=== PATIENT | female | born 1985 | race Caucasian/White ===

== ENCOUNTER → 2018-01-01 16:25 | Observation (INO) ==
[2018-01-01 14:53] LABS: Basophils # 0.1 K/mcL (0.0-0.2); Basophils % 0.5 %; Eosinophils # 0.1 K/mcL (0.0-0.6); Hematocrit 38.2 % (35.3-44.9); Immature Granulocytes % 0.8 % (0-4); Lymphocytes # 1.5 K/mcL (0.6-4.6); Lymphocytes % 15.8 %; Mean Corpuscular Hemoglobin 31.6 pg (28.0-33.3); Mean Corpuscular Volume 92.7 fL (83.0-100.0); Mean Platelet Volume 11.8 fL (9.4-12.4); Monocytes # 0.7 K/mcL (0.0-1.3); Monocytes % 6.8 %; Neutrophils # 7.2 K/mcL (1.6-8.9); Platelet Count 166 K/mcL (140-400); Red Blood Count 4.12 M/mcL (3.82-4.97); Red Cell Distribution Width 14.6 % (11.5-14.5); Segmented Neutrophils % 75.1 %
[2018-01-01 15:17] LABS: Alanine Aminotransferase 15 Units/L (7-52); Aspartate Amino Transferase 18 Units/L (13-39); BUN/Creatinine Ratio 11 (6-26); Blood Urea Nitrogen 8 mg/dL (6-20); Lactate Dehydrogenase 148 Units/L (140-271); Uric Acid 5.6 mg/dL (2.3-7.6); eGFR For African Americans > 60 (> 60); eGFR For Non-African Americans > 60 (> 60)
[2018-01-01 15:25] LABS: Amphetamine Screen,Urine Negative ng/mL (Cutoff=1000); Barbiturate Screen,Urine Negative ng/mL (Cutoff=200); Benzodiazepines Screen,Urine Negative ng/mL (Cutoff=200); Cannabinoid Screen,Urine Negative ng/mL (Cutoff = 50); Cocaine Screen,Urine Negative ng/mL (Cutoff= 300); Creatinine,Urine 22 mg/dL; Opiate Screen,Urine Negative ng/mL (Cutoff=300); Phencyclidine Screen,Urine Negative ng/mL (Cutoff=25); Protein/Creatinine Ratio,Urine 0.23 mg/mg (0.00-0.20)
--- NOTE | 2018-01-01 15:40 | OB/GYN Progress Note ---
Date of Encounter: 01/01/18 Time of Encounter: 15:31 - Assessment and Plan (1) PIH ( induced hypertension), antepartum Current Visit: Yes Status: Acute Pt sent from the office for PIH evaluation secondary to elevated BP in office. Pressures in L&D have been 130s/80s, PIH labwork negative with urine protein/ creat ratio of 0.23. Pt is asymptomatic with + movement, no LOF or VB. Pt advised to rest and hydrate, provided labor precautions. Pt has f/u 01/[address] Vallecillo (2) 37 weeks gestation of Current Visit: Yes Status: Acute Subjective - Subjective Principal diagnosis: 37 weeks gestation Interval history: Ms. Smith is a 32 y/o female at 37 6/7 weeks gestation pt of Dr. Vallecillo who presents to labor and delivery from the office for PIH evaluation. She was noted today to have SBP 160s in the office. She states that her has been uncomplicated except for current breech position of the baby. She has had 3 prior vaginal deliveries. She denies any dizziness, visual changes, ANDERSON, cp, sob, abdominal pain, increased swelling, lof, or vb. She reports good movement and occasional contractions. Antepartum ROS: movement normal, contractions (occasional), no new complaints, no loss of fluid, no vaginal bleeding Objective - Vital Signs Vital Signs: Intake and Output 12/31/17 01/01/18 01/01/18 23:59 07:59 15:59 Other: Weight 86.4 kg Patient Weight 01/01/18 23:59 Weight 86.4 kg - Exam FHR: auscultation normal, category 1 FHR comments: 140 Auscultation: bilateral: normal Abdomen: Present: normal appearance, soft, gravid Uterus: Present: normal, firm Comments: breech presentation I examined this patient and my medical decision-making was reviewed with the Resident Physician. I agree with the documented findings, disposition and treatment plan as described except to the extent set forth below. ROBE Pedro - Labs Labs: Abnormal lab results RDW 14.6 % (11.5-14.5) H 01/01/18 14:30 Protein/Creatinin Ratio 0.23 mg/mg (0.00-0.20) H 01/01/18 14:30 - Allied health notes Allied health notes reviewed: nursing
== END | disposition home or self-care (01) ==
LOC: 1NENULAB
PROVIDERS: ADMIT Student in an Organized Health Care Education/Training Program; ATTEND Student in an Organized Health Care Education/Training Program

== ENCOUNTER 2018-01-09 16:44 | Inpatient (IN) ==
[2018-01-09] MEDS ORDERED: Oxytocin 20 units/ LR 1000 mL 20 UNIT/1,000 ML BAG IVC ONE (16:54)
[2018-01-09] MEDS ORDERED: Ringers Solution, Lactated 1,000 ML IVC ONE (16:54)
[2018-01-09] MEDS ORDERED: Famotidine 20 MG/2 ML VIAL IVP ONE (16:54)
[2018-01-09] MEDS ORDERED: Metoclopramide 10 MG/2 ML VIAL IVP ONE (16:54)
[2018-01-09] MEDS ORDERED: Ringers Solution, Lactated 1,000 ML IVC SCH (17:00)
[2018-01-09] MEDS ORDERED: Oxytocin 20 units/ LR 1000 mL 20 UNIT/1,000 ML BAG IVC SCH (17:00)
--- NOTE | 2018-01-09 18:08 | OB/GYN History & Physical ---
Date of Encounter: 01/09/18 Time of Encounter: 18:03 Assessment and Plan (1) 39 weeks gestation of Current visit: Yes Status: Acute Patient has received care with Dr. Vallecillo (2) Breech presentation Current visit: Yes Status: Acute The patient had a formal ultrasound in the hospital which confirmed breech presentation. She has an PEYTON of 8.6. She has given informed consent to proceed with a primary section. Anesthesia and staff have been notified Qualifiers: Fetus number: single or unspecified fetus Qualified Code(s): O32.1XX0 - Maternal care for breech presentation, not applicable or unspecified History of Present Illness HPI: Ms. Smith is a 32 year old female 013 who presents to labor and delivery from the office for breech presentation with cervical change at 39 weeks. The patient had wanted to have a version because she had had 3 vaginal deliveries previously. The hope this fetus has been in the breech presentation. Ultrasound done formally after patient transferred over from the office to labor and delivery showed a breech presentation with an PEYTON of 8.6. It was also noted in the original 20 week ultrasound that there is a bilobed placenta with a membrane between. I reviewed these findings with the patient and recommend that she have a primary . She is at risk for a failed version and a placental disruption with need for emergency . Patient verbalized understanding of her situation and plan of care. Informed consent obtained. Her blood type is O+, she is rubella immune and varicella immune. 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 She reports the fetus been active. She had contractions a few days ago but nothing recently. She has had no vaginal bleeding or loss of fluid. Her GBS is negative. She reports an active fetus. Past Med Surg Social Fam HX - Past Medical History Source: patient, old records reviewed Medical history: thyroid disease Psychiatric history: no psych history - Past Surgical History Surgical History: no surgical history, other - Social History Smoking Status: Never smoker Smokeless Tobacco Status: No Alcohol use: none Drug use: none - Family History Mother Living Status: Still Living Hx Family Cardiac Disorders: No (HLD) Hx Family Respiratory Disorders: No Hx Family Cancer: No Hx Family GI Disorders: No Hx Family Endocrine Disorder: Yes (hypothyroid) Hx Family Neuromuscular Disorders: No Hx Family Neurologic Disorders: No Hx Family HEENT Disorders: No Hx Family Autoimmune Disorders: No Obstetrical History - Pregnancies : 5 Term: 3 Ab's: 1 Livin Medications and Allergies Pnv No.122/Iron/Folic Acid [ Multi Tablet] 1 tab PO DAILY 01/01/18 [ History] Thyroid,Pork [[place] Thyroid] 15 mg PO DAILY 01/01/18 [History] 3 Allergy/AdvReac Type Severity Reaction Status Date / Time Penicillins Allergy Mild Rash Verified 01/01/18 14:39 Review of System OB All systems PM: reviewed and no additional remarkable complaints except as stated - Cardiovascular Cardiovascular: pedal edema - Endocrine Endocrine: as per HPI Exam - Constitutional Constitutional: well developed, well nourished, no acute distress, average body habitus - HEENT HEENT: Normocephaly, Mucus Membranes Moist - Neck Neck exam: supple - Lungs Respiratory exam: CTAB - Cardiovascular Cardiovascular exam: RRR - Breasts Breast: bilateral: normal - Abdomen Abdomen: Present: gravid, non tender - Extremities Extremities exam: pedal edema, warm Deep Tendon Reflex Grade: 3+ Normal But Brisk - Vulva Vulva: bilateral: normal - Vagina Vagina: Present: normal moisture - Cervix Dilation: 4 (per Dr Vallecillo) Results All other labs normal. - VTE Documentation of Mechanical Device: Intermittent pneumatic compression device
--- NOTE | 2018-01-09 18:51 | Anesthesia Evaluation PreOp ---
Date of Encounter: 01/09/18 Time of Encounter: 18:49 - Past History Planned Operation: c section Cardiac History: Denies any Significant Hx Pulmonary History: Denies Any Significant HX APPRAISER History: Denies Any Significant HX Other Medical History: Thyroid, GERD Anesthesia History: No Prior Anesthetic Complications, Past Anesthesia (kurt x 2) : Yes Test: Positive Alcohol Use: none Drug use: none Medications and Allergies Pnv No.122/Iron/Folic Acid [ Multi Tablet] 1 tab PO DAILY 01/01/18 [ History] Thyroid,Pork [[place] Thyroid] 15 mg PO DAILY 01/01/18 [History] 3 Allergy/AdvReac Type Severity Reaction Status Date / Time Penicillins Allergy Mild Rash Verified 01/01/18 14:39 - Meds/Allergy Pre-op Review Medications Reviewed: Yes Allergies Reviewed: Yes Beta Blockers on Current Med List: No Anesthesia Exam 140/78 88 16 fht 133 Height: 5'4" Weight: 191 NPO (# of Hours): 8 Pain Scale: 2 Pain Scale Used: Numeric (1 - 10) - HEENT Pupil (Motor): Pupils equal Mallampati: II Teeth: Normal Oral Opening: Greater than 3 - APPRAISER LOC: Oriented APPRAISER Motor: Normal RUE, Normal LUE, Normal RLE, Normal LLE, Normal Face APPRAISER Sensory: Normal: RUE, LUE, RLE, LLE, Face - Cardiac Murmur: None - Pulmonary Breath Sounds: bilateral Clear Respiratory Effort: Symmetrical Anesthesia Assess/Plan ASA Score: 2 Modified Zohaib Scale for Level of Consciousness: Cooperative, oriented, and tranquil Anesthetic Plan: Regional Autologous Blood: No Monitoring Plan: Standard Monitors Recovery Plan: PACU (risks discussed, questions answered, consented)
[2018-01-09] MEDS ORDERED: *HR* FentaNYL (PF) 100 MCG/2 ML VIAL ONE (19:05)
[2018-01-09] MEDS ORDERED: *HR* Phenylephrine 10 MG/ML VIAL ONE (19:10)
[2018-01-09 19:14] LABS: Basophils % 0.2 %; Eosinophils % 0.3 %; Hematocrit 35.6 % (35.3-44.9); Hemoglobin 12.3 g/dL (11.5-15.4); Immature Granulocytes % 0.6 % (0-4); Lymphocytes # 1.2 K/mcL (0.6-4.6); Lymphocytes % 12.8 %; Mean Corpuscular HGB Conc 34.6 g/dL (31.6-35.5); Mean Corpuscular Hemoglobin 31.7 pg (28.0-33.3); Mean Corpuscular Volume 91.8 fL (83.0-100.0); Mean Platelet Volume 12.2 fL (9.4-12.4); Monocytes # 0.6 K/mcL (0.0-1.3); Neutrophils # 7.6 K/mcL (1.6-8.9); Platelet Count 173 K/mcL (140-400); Red Blood Count 3.88 M/mcL (3.82-4.97); Red Cell Distribution Width 14.6 % (11.5-14.5); Segmented Neutrophils % 80.1 %
[2018-01-09 19:28] LABS: Alanine Aminotransferase 14 Units/L (7-52); Aspartate Amino Transferase 18 Units/L (13-39); BUN/Creatinine Ratio 14 (6-26); Blood Urea Nitrogen 10 mg/dL (6-20); Lactate Dehydrogenase 128 Units/L (140-271); Uric Acid 6.7 mg/dL (2.3-7.6); eGFR For African Americans > 60 (> 60); eGFR For Non-African Americans > 60 (> 60)
[2018-01-09 20:41] LABS: Amphetamine Screen,Urine Negative ng/mL (Cutoff=1000); Barbiturate Screen,Urine Negative ng/mL (Cutoff=200); Benzodiazepines Screen,Urine Negative ng/mL (Cutoff=200); Cannabinoid Screen,Urine Negative ng/mL (Cutoff = 50); Cocaine Screen,Urine Negative ng/mL (Cutoff= 300); Opiate Screen,Urine Negative ng/mL (Cutoff=300); Phencyclidine Screen,Urine Negative ng/mL (Cutoff=25)
--- NOTE | 2018-01-09 21:40 | Anesthesia Procedures ---
Date of Encounter: 01/09/18 Time of Encounter: 21:38 Procedures: Anesthesia - Epidural/Spinal OB Eval: Gestational age: 38 OB Eval: : 5 OB Eval: Hx Para: 3 OB Eval: Dilated at (cm): 2 OB Eval: Contractions: Non-stressed pattern Consent Obtained: Yes Supplemental Oxygen: None/Room Air Site Prep: Aseptic Technique, Sterile prep and drape, Povidone-Iodine 1% Patient position: upright Local Anesthetic: Lidocaine 1% Amount of Local Anesthetic used: 3 Interspace Used: L2-L3 Loss of Resistance (ANNE): No Blood: No CSF: Yes Spinal Needle Gauge: 25 Spinal Dose: marcaine 12mg, duramoroh .25mg fentanyl 10 mcg Procedure: aseptic, tolerated well, effective Vitals + FHT's: 133/78 65 16 fht 133
[2018-01-09] MEDS ORDERED: *HR* OxyCODONE Immed Rel 5 MG TABLET PO PRN (21:42)
[2018-01-09] MEDS ORDERED: Ondansetron 4 MG/2 ML VIAL IVP PRN (21:42)
[2018-01-09] MEDS ORDERED: Acetaminophen IV 1,000 MG/100 ML INFUS..BTL IVPB ONE (21:42)
[2018-01-09] MEDS ORDERED: Dexamethasone 4 MG/ML VIAL ONE (22:21)
[2018-01-09] MEDS ORDERED: Ondansetron 4 MG/2 ML VIAL ONE (22:21)
--- NOTE | 2018-01-09 22:41 | OB/GYN Procedure Note ---
Section - Date of procedure: 01/09/18 Preop diagnosis: breech Post-op diagnosis: same Procedure: section, primary low transverse Surgeon: Val Briseno Estimated blood loss (cc): 300 Was there an child and youth program assistant present: No Anesthesiologist: Francisco Javier Ramírez Typists Supervisor: Lux Rubio Anesthesia Type: Spinal section complications: none Disposition: L&D Recovery Room Specimens: Placenta, Cord segment, Cord blood - (s) A Infant Delivery Date: 01/09/18 Infant Delivery Time: 21:45 Presentation: complete breech Position: unknown Route of delivery: other (Primary , low transverse) Gender: Female Viability: Viable Pounds: 7 Ounces: 7 Gram Weight: 3.365 kg at 1 minute: 9 at 5 minutes: 9 Shoulder Dystocia: not encountered Specimens collected: cord blood Placenta: spontaneous, uterine exploration Cord: 3 umbilical vessels - Narrative Narrative: The patient was brought to the operating room, sign in completed, given spinal anesthesia then prepped and draped in the usual sterile fashion. A timeout was completed. A Pfannenstiel skin incision was then made and sharply dissected down to the fascia. The fascia was then incised in the midline and extended bluntly and sharply bilaterally. 2 straight [place] clamps are placed on the inferior fascial edge and the fascia was bluntly and sharply dissected from rectus muscles, this was repeated superiorly. The rectus muscles were bluntly and sharply bissected. Peritoneum was bluntly entered and extended bluntly superiorly and inferiorly. A bladder blade was placed to protect the bladder. The Vesicouterine peritoneum was incised with Metzenbaum scissors and extended laterally then the bladder flap was reflected inferiorly and the bladder blade was replaced to protect the bladder. A low transverse incision was then made in the lower uterine segment down to the amnion. This was then bluntly extended laterally. The amnion was then bluntly entered, clear fluid was seen, and the infant was delivered in complete breech presentation. The was vigorous and suctioned on the operating field. After delayed cord clamping, the was handed to the nursery care team. A cord segment was obtained. IV Pitocin was started. The placenta was delivered spontaneous and intact. The uterine cavity was digitally inspected and noted to be clear and then was wiped clean with a moist lap sponge. Tubes and ovaries were inspected and found to be grossly normal. Ring clamps were placed on the edges of the uterine incision and the uterine incision was closed using 0 Vicryl suture in a running locking fashion. A second imbricating layer completed the uterine closure. Good hemostasis was achieved. Gloves were changed. The pelvic cavity was copiously irrigated with sterile water and good hemostasis was again noted. Peritoneal edges and rectus muscles were inspected and good hemostasis was achieved. The fascia was then closed using an 0 PDS loop in a running nonlocking fashion. Subcutaneous tissue was irrigated with sterile water good hemostasis was achieved. The skin was then closed with 4-0 Monoicryl in a subcuticular fashion. Benzoin and Steri-Strips were used to reinforce the skin incision. Garg was noted to be draining clear yellow urine at the end of the procedure. All sponge and instrument counts were correct at the end of the procedure
[2018-01-10] MEDS ORDERED: Ondansetron 4 MG/2 ML VIAL IVP PRN (00:52)
[2018-01-10] MEDS ORDERED: Oxytocin 20 units/ LR 1000 mL 20 UNIT/1,000 ML BAG IVC SCH (00:52)
[2018-01-10] MEDS ORDERED: Simethicone 80 MG TAB.CHEW PO PRN (00:52)
[2018-01-10] MEDS ORDERED: Metoclopramide 10 MG/2 ML VIAL IVP PRN (00:52)
[2018-01-10] MEDS ORDERED: Sennosides 8.6 MG TABLET PO PRN (00:52)
[2018-01-10] MEDS: Ibuprofen 600 MG TABLET PO SCH ×4 (02:55→22:56)
[2018-01-10 04:45] LABS: Basophils % 0.2 %; Hematocrit 34.2 % (35.3-44.9); Hemoglobin 11.9 g/dL (11.5-15.4); Immature Granulocytes % 0.6 % (0-4); Lymphocytes # 0.8 K/mcL (0.6-4.6); Lymphocytes % 4.6 %; Mean Corpuscular HGB Conc 34.8 g/dL (31.6-35.5); Mean Corpuscular Hemoglobin 31.9 pg (28.0-33.3); Mean Corpuscular Volume 91.7 fL (83.0-100.0); Mean Platelet Volume 11.8 fL (9.4-12.4); Monocytes # 0.7 K/mcL (0.0-1.3); Monocytes % 3.9 %; Neutrophils # 15.2 K/mcL (1.6-8.9); Platelet Count 172 K/mcL (140-400); Red Blood Count 3.73 M/mcL (3.82-4.97); Red Cell Distribution Width 14.4 % (11.5-14.5); Segmented Neutrophils % 90.7 %
[2018-01-10] MEDS: *HR* OxyCODONE/APAP 5/325 TABLET PO PRN ×3 (06:26→19:09)
--- NOTE | 2018-01-10 09:15 | OB/GYN Progress Note ---
Date of Encounter: 01/10/18 Time of Encounter: 09:12 - Assessment and Plan (1) Status post section Current Visit: Yes Status: Acute Continue routine PP care PO pain meds for pain control Anticipate d/c home tomorrow Subjective - Subjective Principal diagnosis: s/p PLTCS Interval history: Feeling well Not OOB yet Cramping minimal - using ibuprofen and percocet Some nipple soreness Garg remains in place Passing flatus, no BM yet Tolerating regular diet. Patient reports: appetite normal, pain well controlled, no voiding normally, no ambulating normally : doing well, bottle feeding Objective - Vital Signs Latest vital signs: Vital Signs Temp Pulse Resp BP Pulse Ox 01/10/18 03:48 98.4 F 64 16 138/84 98 01/10/18 02:58 98.1 F 70 18 144/87 99 01/10/18 01:43 98.3 F 63 14 134/77 99 01/10/18 01:21 98.3 F 66 14 126/77 98 01/10/18 01:00 98.2 F 73 16 127/80 99 Intake and Output 01/09/18 01/10/18 01/10/18 23:59 07:59 15:59 Output Total 600 / 600 Balance -600 / -600 Output: Catheter 600 / 600 Other: Weight 87 kg - Exam Lungs: bilateral: normal Chest: Normal S1, Normal S2 Extremities: Present: normal. Absent: edema Abdomen: Present: normal appearance, soft Incision: Present: normal, intact, dressed Uterus: Present: normal, firm Fundal Height: 1 (below umbilicus) Comments: Breasts: nipples intact without erythema; breasts soft, non-tender - Labs Labs: Laboratory Results - last 24 hr 01/09/18 01/09/18 01/09/18 16:54 16:54 18:51 WBC 9.4 RBC 3.88 Hgb 12.3 Hct 35.6 MCV 91.8 MCH 31.7 MCHC 34.6 RDW 14.6 H Plt Count 173 MPV 12.2 Immature Gran % 0.6 Seg Neutrophils % 80.1 Lymphocytes % 12.8 Monocytes % 6.0 Eosinophils % 0.3 Basophils % 0.2 Neutrophils # 7.6 Lymphocytes # 1.2 Monocytes # 0.6 Eosinophils # 0.0 Basophils # 0.0 BUN 10 Creatinine 0.73 Est GFR ( Amer) > 60 Est GFR (Non-Af Amer) > 60 BUN/Creatinine Ratio 14 Uric Acid 6.7 AST 18 ALT 14 Lactate Dehydrogenase 128 L Urine Opiates Screen Negative Ur Barbiturates Screen Negative Ur Phencyclidine Scrn Negative Ur Amphetamines Screen Negative U Benzodiazepines Scrn Negative Urine Cocaine Screen Negative U Marijuana (THC) Screen Negative 01/10/18 04:24 WBC 16.8 H D RBC 3.73 L Hgb 11.9 Hct 34.2 L MCV 91.7 MCH 31.9 MCHC 34.8 RDW 14.4 Plt Count 172 MPV 11.8 Immature Gran % 0.6 Seg Neutrophils % 90.7 Lymphocytes % 4.6 Monocytes % 3.9 Eosinophils % 0.0 Basophils % 0.2 Neutrophils # 15.2 H Lymphocytes # 0.8 Monocytes # 0.7 Eosinophils # 0.0 Basophils # 0.0 BUN Creatinine Est GFR ( Amer) Est GFR (Non-Af Amer) BUN/Creatinine Ratio Uric Acid AST ALT Lactate Dehydrogenase Urine Opiates Screen Ur Barbiturates Screen Ur Phencyclidine Scrn Ur Amphetamines Screen U Benzodiazepines Scrn Urine Cocaine Screen U Marijuana (THC) Screen
[2018-01-10] MEDS: Prenatal Vit/FA 1 EACH TABLET PO SCH (09:18)
[2018-01-10] MEDS ORDERED: Thyroid (Amour) 30 MG TABLET PO SCH (09:30)
[2018-01-10] MEDS: Thyroid (Amour) 30 MG TABLET PO SCH (10:38)
[2018-01-11] MEDS: *HR* OxyCODONE/APAP 5/325 TABLET PO PRN ×3 (02:50→11:07)
[2018-01-11] MEDS: Ibuprofen 600 MG TABLET PO SCH (06:55)
[2018-01-11 07:45] VITALS: BP 125/86
[2018-01-11] MEDS: Thyroid (Amour) 30 MG TABLET PO SCH (08:40)
[2018-01-11] MEDS: Prenatal Vit/FA 1 EACH TABLET PO SCH (08:40)
--- NOTE | 2018-01-11 11:51 | Discharge Summary ---
Date of Encounter: 01/11/18 Time of Encounter: 11:48 - Discharge Diagnosis (1) Status post section Priority: Primary Status: Acute Comments: Stable in PP, meeting all post milestones, tolerates regular diet, pain well managed on po pain medication. desires discharge. - Discharge Medications Prescriptions: Ibuprofen [Motrin] 600 mg PO Q6HR #60 tablet Docusate [Colace] 100 mg PO BID #60 capsule OxyCODONE/APAP 5/325 [Percocet 5/325 MG] 1 each PO Q4H PRN 7 Days #20 tablet PRN Reason: Moderate pain 4-6 Home Medications: Pnv No.122/Iron/Folic Acid [ Multi Tablet] 1 tab PO DAILY 01/01/18 [ History] Thyroid,Pork [[place] Thyroid] 15 mg PO DAILY 01/01/18 [History] Docusate [Colace] 100 mg PO BID #60 capsule 01/11/18 [Rx] Ibuprofen [Motrin] 600 mg PO Q6HR #60 tablet 01/11/18 [Rx] OxyCODONE/APAP 5/325 [Percocet 5/325 MG] 1 each PO Q4H PRN 7 Days #20 tablet [Rx] Thyroid ([place]) [[place] Thyroid] 30 mg PO DAILY tablet 01/11/18 [Rx] Allergies/Adverse Reactions: 3 Allergy/AdvReac Type Severity Reaction Status Date / Time Penicillins Allergy Mild Rash Verified 01/01/18 14:39 Data Procedures and tests throughout hospitalization: Laboratory Tests 01/09/18 01/09/18 01/09/18 16:54 16:54 18:51 WBC 9.4 RBC 3.88 Hgb 12.3 Hct 35.6 MCV 91.8 MCH 31.7 MCHC 34.6 RDW 14.6 H Plt Count 173 MPV 12.2 Immature Gran % 0.6 Seg Neutrophils % 80.1 Lymphocytes % 12.8 Monocytes % 6.0 Eosinophils % 0.3 Basophils % 0.2 Neutrophils # 7.6 Lymphocytes # 1.2 Monocytes # 0.6 Eosinophils # 0.0 Basophils # 0.0 BUN 10 Creatinine 0.73 Est GFR ( Amer) > 60 Est GFR (Non-Af Amer) > 60 BUN/Creatinine Ratio 14 Uric Acid 6.7 AST 18 ALT 14 Lactate Dehydrogenase 128 L Urine Opiates Screen Negative Ur Barbiturates Screen Negative Ur Phencyclidine Scrn Negative Ur Amphetamines Screen Negative U Benzodiazepines Scrn Negative Urine Cocaine Screen Negative U Marijuana (THC) Screen Negative 01/10/18 04:24 WBC 16.8 H D RBC 3.73 L Hgb 11.9 Hct 34.2 L MCV 91.7 MCH 31.9 MCHC 34.8 RDW 14.4 Plt Count 172 MPV 11.8 Immature Gran % 0.6 Seg Neutrophils % 90.7 Lymphocytes % 4.6 Monocytes % 3.9 Eosinophils % 0.0 Basophils % 0.2 Neutrophils # 15.2 H Lymphocytes # 0.8 Monocytes # 0.7 Eosinophils # 0.0 Basophils # 0.0 BUN Creatinine Est GFR ( Amer) Est GFR (Non-Af Amer) BUN/Creatinine Ratio Uric Acid AST ALT Lactate Dehydrogenase Urine Opiates Screen Ur Barbiturates Screen Ur Phencyclidine Scrn Ur Amphetamines Screen U Benzodiazepines Scrn Urine Cocaine Screen U Marijuana (THC) Screen - Impressions ITS Impressions Obstetrics Ultrasound 01/09/18 16:55 IMPRESSION: Single live intrauterine with gestational age of 37 week 2 day by current sonographic biometry. The estimated due date is January 28, 2018. D/ / Valeriy Austin MD / Valeriy Austin MD Interpreting Provider: Valeriy Austin MD Date of admission: 01/09/18 16:44 Primary care physician: PCP NONE Discharging clinician: Jeannie Bar Anticipated date of discharge: 01/11/18 - Patient Status Disposition: Home, Self-Care Condition: Good Functional capacity at discharge: independent ambulation Overall status at discharge: patient is back to baseline - Discharge Instructions Follow Up With: NONE,PCP [Primary Care Provider] - Rachell Vallecillo DO [Partnered Physician] - - Diet and Activity Activity: resume usual activities as tolerated Diet: regular diet Hospital Course Reason for admission: section Delivery: section Episiotomy: none Laceration: none Other procedures: none complications: none Discharge diagnosis: IUP at term delivered baby: female Hospital course: Section - Date of procedure: 01/09/18 Preop diagnosis: breech Post-op diagnosis: same Procedure: section, primary low transverse Surgeon: Val Briseno Estimated blood loss (cc): 300 Was there an blood donor unit assistant present: No Anesthesiologist: Francisco Javier Ramírez Ctc Operator: Lux Rubio Anesthesia Type: Spinal section complications: none Disposition: L&D Recovery Room Specimens: Placenta, Cord segment, Cord blood - (s) A Infant Delivery Date: 01/09/18 Delivery Time: 21:45 Presentation: complete breech Position: unknown Route of delivery: other (Primary , low transverse) Gender: Female Viability: Viable Pounds: 7 Ounces: 7 Gram Weight: 3.365 kg at 1 minute: 9 at 5 minutes: 9 Shoulder Dystocia: not encountered Specimens collected: cord blood Placenta: spontaneous, uterine exploration Cord: 3 umbilical vessels Stable in PP and appropriate for discharge, OAARS reviewed. Time Attestation: Total time spent providing and/or coordinating discharge services: - VTE Documentation of Mechanical Device: Intermittent pneumatic compression device Exam - Constitutional Vitals: Temp Pulse Resp BP Pulse Ox 97.5 F L 67 12 125/86 97 01/11/18 07:43 01/11/18 07:43 01/11/18 07:43 01/11/18 07:43 01/11/18 07:43 General appearance IM: A&O X 3 - Respiratory Respiratory exam: Present: CTAB - Cardiovascular Cardiovascular exam IM: Present: RRR - GI/Abdominal GI/Abdominal exam IM: soft Incision: normal, intact - Uterine Tone: Firm Uterus Position: At Umbilicus - Extremities Exam Extremities exam IM: Present: normal capillary refill, normal inspection - Neurological Exam Neurological exam: normal gait, oriented X3 - Psychiatric Additional comments: reports good mood
== END 2018-01-11 13:32 | disposition home or self-care (01) | DRG 766 ==
LOC: 1NENULAB 16:44 → 1NENUOBS 01-10 00:49
PROVIDERS: ADMIT Obstetrics & Gynecology; ATTEND Obstetrics & Gynecology